=== PATIENT | male | born 1995 | race Hispanic/Latino ===

== ENCOUNTER 2019-04-16 08:12 | Day surgery (SDC) | payer OTHER ==
[2019-04-07 14:04] LABS: BASOPHILS % (AUTO) 0.5 % (0.0-5.0); EOSINOPHILS % (AUTO) 3.3 % (0.0-8.0); LYMPHOCYTES % (AUTO) 38.4 % (21.0-51.0); MEAN CORPUSCULAR HEMOGLOBIN 28.9 pg (27.0-33.0); MEAN CORPUSCULAR HGB CONC 32.5 g/dL (32.0-36.0); MEAN CORPUSCULAR VOLUME 88.9 fL (79-99); MONOCYTES % (AUTO) 9.6 % (3.0-13.0); NEUTROPHILS % (AUTO) 47.2 % (40.0-77.0); PLATELET COUNT (AUTO) 238 K/uL (130-400); RED BLOOD CELL COUNT(AUTO) 4.95 MIL/uL (4.50-6.20); RED CELL DISTRIBUTION WIDTH 12.3 % (11.0-15.5); WHITE BLOOD COUNT (AUTO) 6.1 K/uL (4.8-10.8)
[2019-04-07 14:14] LABS: CREATININE 0.9 mg/dL (0.5-1.5)
[2019-04-07 15:22] VITALS: BP 150/94
[~2019-04-16] VITALS: Ht 177.8 cm; Wt 81.2 kg
[2019-04-16] VITALS (16 sets, daily range): BP systolic 105–132; BP diastolic 51–81
[~2019-04-16 08:12] MED LIST: CEFAZOLIN SODIUM 1 GM VIAL IVP ONE; LACTATED RINGERS 1000ML 1,000 ML IV SCH
[2019-04-16] MEDS ORDERED: CEFAZOLIN SODIUM 1 GM VIAL ONE (09:54)
--- NOTE | 2019-04-16 10:17 | NUR ---
SX RIGHT KNEE CLIPPED AND WIPED WITH JOSE MARIA BY MEHNAZ CHATTERJEE APPLIED TO LEFT FOOT
[2019-04-16] MEDS ORDERED: LIDOCAINE PF 2% 5ML ABBOJECT ONE ×2 (11:45→13:11)
[2019-04-16] MEDS ORDERED: MIDAZOLAM HCL 1 MG/ML 2ML VIAL ONE ×2 (11:46→13:13)
[2019-04-16] MEDS ORDERED: FENTANYL CITRATE PF 50 MCG/1 ML 5ML AMP IV ONE (11:46)
[2019-04-16] MEDS ORDERED: PROPOFOL 10 MG/ML 20ML VIAL IV ONE ×2 (11:46→13:12)
[2019-04-16] MEDS ORDERED: ROPIVACAINE 0.5% 5MG/ML 30ML IJ ONE (11:50)
[2019-04-16] MEDS ORDERED: CEFAZOLIN SODIUM 1 GM VIAL IVP ONE (12:00)
[2019-04-16] MEDS ORDERED: DEXAMETHASONE SOD PHOSPHATE 10MG/ML 1ML VIAL ONE ×2 (12:11→13:12)
[2019-04-16] MEDS ORDERED: ONDANSETRON HCL 4 MG/2 ML VIAL ONE ×2 (12:11→13:12)
[2019-04-16] MEDS ORDERED: KETOROLAC TROMETHAMINE 30MG/ML ONE ×2 (12:11→14:51)
[2019-04-16] MEDS ORDERED: CEFAZOLIN SODIUM 1 GM VIAL IRRIG ONE (12:22)
[2019-04-16] MEDS ORDERED: SUCCINYLCHOLINE 200MG/10ML SYR ONE (13:11)
[2019-04-16] MEDS ORDERED: NEOSTIGMINE 5MG/5ML SYR IV ONE (13:12)
[2019-04-16] MEDS ORDERED: GLYCOPYRROLATE 1 MG/5 ML SYRINGE ONE (13:12)
[2019-04-16] MEDS ORDERED: ROCURONIUM 10MG/1ML SYR 10 MG/ML ML ONE (13:14)
[2019-04-16] MEDS ORDERED: FENTANYL CITRATE PF 50 MCG/1 ML 2ML VIAL ONE ×2 (13:15→14:40)
[2019-04-16] MEDS ORDERED: MEPERIDINE-PF 25 MG/ML SYG ONE (14:27)
[2019-04-16] MEDS ORDERED: MORPHINE SULFATE 4 MG/1ML SYG ONE ×2 (14:55→15:09)
--- NOTE | 2019-04-16 15:05 | NUR ---
REBEKA DE LA ROSA NOTIFIED PT COUGHING UP SMALL AMOUNT OF BRIGHT RED BLOOD. 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 Addendum: 04/16/19 at 1507 by CARLENE RIOS RN RN Amended: Links added.
[2019-04-16] MEDS ORDERED: IPRATROPIUM/ALBUTEROL SULFATE 3 ML SOLUTION IH ONE (15:12)
--- NOTE | 2019-04-16 15:29 | NUR ---
COUGH CLEARING UP AND LESS BLOODY Addendum: 04/16/19 at 1530 by CARLENE RIOS RN RN Amended: Links added.
--- NOTE | 2019-04-16 16:15 | NUR ---
PT LEFT VIA WHEELCHAIR IN PVT CAR D/C INSTRUCTIONS GIVE TO MOTHER WITH RX SCRIPT. PT. BROUGHT CRUTCHES FROM HOME INSTRUCTIONS ON CRUTCHES GIVEN. PT. V/S STABLE NO COMPLICATIONS
== END 2019-04-16 16:15 | disposition home or self-care (01) ==
LOC: DAH 08:12
PROVIDERS: ATTEND Orthopaedic Surgery
DX: S83.511A Sprain of anterior cruciate ligament of right knee, initial encounter (principal); S83.211A Bucket-handle tear of medial meniscus, current injury, right knee, initial encounter; X58.XXXA Exposure to other specified factors, initial encounter; Y93.89 Activity, other specified; Y92.89 Other specified places as the place of occurrence of the external cause; Y99.8 Other external cause status; M22.41 Chondromalacia patellae, right knee
CPT/HCPCS: 29881; 29888; 36415; 64447; 76942; 80048; 85025; 94640; A4213; A4215; A4221; A4222; A4223; A4450; A4649 ×4; A4663; A4930 ×2; A5120; A6223; A6260; C1713 ×2; C1776; J0330; J0690 ×3; J1100 ×2; J1885 ×2; J2001 ×2; J2175; J2250 ×2; J2270 ×2; J2405 ×2; J2704; J2795; J3010; J3490; J7030; J7120; J2710

== ENCOUNTER → 2023-07-25 | Outpatient (CLI) | payer OTHER ==
[2023-07-25 09:22] LABS: BASOPHILS # (AUTO) 0.02 K/uL (0.00-0.20); BASOPHILS % (AUTO) 0.5 % (0.0-5.0); EOSINOPHILS # (AUTO) 0.07 K/uL (0.00-0.70); EOSINOPHILS % (AUTO) 1.7 % (0.0-8.0); HEMATOCRIT 47.1 % (42-54); IMMATURE GRANULOCYTE ABSOLUTE 0.01 K/uL (0-1); LYMPHOCYTES # (AUTO) 1.3 K/uL (1.0-4.8); LYMPHOCYTES % (AUTO) 31.9 % (21.0-51.0); MEAN CORPUSCULAR HEMOGLOBIN 29.2 pg (27.0-33.0); MEAN CORPUSCULAR HGB CONC 32.9 g/dL (32.0-36.0); MEAN CORPUSCULAR VOLUME 88.9 fL (79-99); MONOCYTES # (AUTO) 0.3 K/uL (0.1-1.0); MONOCYTES % (AUTO) 8.3 % (3.0-13.0); NEUTROPHILS # (AUTO) 2.4 K/uL (1.8-7.7); NEUTROPHILS % (AUTO) 57.4 % (40.0-77.0); PLATELET COUNT (AUTO) 227 K/uL (130-400); RED CELL DISTRIBUTION WIDTH 12.5 % (11.0-15.5); WHITE BLOOD COUNT (AUTO) 4.1 K/uL (4.8-10.8)
[2023-07-25 09:24] LABS: APPEARANCE,URINE CLEAR (CLEAR); BILIRUBIN,URINE NEGATIVE (NEGATIVE); COLOR,URINE LIGHT-YELLOW (YELLOW); GLUCOSE, URINE (UA) NEGATIVE (NEGATIVE); KETONES,URINE NEGATIVE (NEGATIVE); LEUKOCYTE ESTERASE ,URINE NEGATIVE Leu/uL (NEGATIVE); NITRATE,URINE NEGATIVE (NEGATIVE); OCCULT BLOOD,URINE NEGATIVE (NEGATIVE); PH,URINE 6.5 (5.0-8.0); PROTEIN,URINE NEGATIVE (NEGATIVE); UROBILINOGEN,URINE 0.2 mg/dL (0.2-1.0)
[2023-07-25 09:28] LABS: ADD UA MICROSCOPIC NO
[2023-07-25 09:41] LABS: ALBUMIN 4.7 g/dL (3.5-5.0); BILIRUBIN,TOTAL 0.6 mg/dL (0.2-1.0); CREATININE 0.9 mg/dL (0.5-1.3); THYROID STIMULATING HORMONE 1.31 uIU/mL (0.36-3.74); TOTAL PROTEIN, SERUM 8.5 g/dL (6.0-8.3)
[2023-07-25 10:35] LABS: ERYTHROCYTE SEDIMENTATION RATE 2 MM/HR (0-15)
== END | disposition home or self-care (01) ==
LOC: LAB 07:53
PROVIDERS: ATTEND Nurse Practitioner Family
DX: Z13.21 Encounter for screening for nutritional disorder (principal); I10 Essential (primary) hypertension; E29.1 Testicular hypofunction; R53.82 Chronic fatigue, unspecified
CPT/HCPCS: 36415; 80053; 80061; 81003; 82306; 82533; 82626; 82670; 82672; 83001; 83002; 84270; 84402; 84403; 84439; 84443; 85025; 85651